=== PATIENT | male | born 1955 | race Asian ===

== ENCOUNTER 2017-07-05 09:00 | Outpatient (CLI) | payer OTHER ==
--- NOTE | 2017-07-05 11:09 | MRI ---
MRI LUMBAR SPINE WITHOUT CONTRAST: HISTORY: Back and right leg pain. COMPARISON: None. TECHNIQUE: Multiplanar, multisequence MR images were obtained of the lumbar spine without contrast. FINDINGS: The vertebral bodies demonstrate normal height without evidence of fracture. There is grade 1 ly listhesis of L4 and L5. Generalized disk desiccation is seen. No significant marrow signal abnormal ity is present. The conus medullaris terminates normally at T12. The prevertebral and paraspinal soft tissues are un remarkable. T12-L1: Unremarkable. L1-L2: A small disk osteophyte complex is seen. Mild bilateral posterior facet arthrosis. Mild ravindra tral canal stenosis. Mild bilateral neural foraminal stenosis. L2-L3: A minimal generalized concentric disk bulge is seen. Mild bilateral posterior facet arthrosi s. No central canal stenosis. Mild bilateral neural foraminal stenosis. L3-L4: A small disk osteophyte complex is seen. Moderate bilateral posterior facet arthrosis. Mode rate central canal stenosis. Moderate bilateral neural foraminal stenosis. L4-L5: A moderate disk osteophyte complex is seen. Moderate bilateral posterior facet arthrosis. M oderate to severe central canal stenosis. Mild to moderate bilateral neural foraminal stenosis. L5-S1: A small disk osteophyte complex is seen. Mild bilateral posterior facet arthrosis. No centr al canal stenosis. Moderate bilateral neural foraminal stenosis. IMPRESSION: Degenerative changes of the lumbar spine, as above. POS: [facility]
--- NOTE | 2017-07-05 14:04 | RAD ---
5 VIEWS LUMBAR SPINE INCLUDING FLEXION AND EXTENSION VIEWS: Date: 07/05/17 HISTORY: Spondylolisthesis. FINDINGS: There are five non-rib bearing lumbar-type vertebral bodies. T12 ribs are small in size. The vertebra l body heights are within normal limits. There is narrowing of the L4-5 and L5-S1 intervertebral disc spaces. There is mild Grade I anterolisthesis of L4 on L5, which is unchanged between the flexion an d extension views. No additional level of subluxation is seen and there is no evidence of a fracture. There are facet degenerative changes seen in the lower lumbar spine. IMPRESSION: Degenerative changes in the lower lumbar spine, and there is mild Grade I anterolisthesis of L4 on L5 . POS: [facility]
== END 2017-07-05 09:01 | disposition home or self-care (01) ==
LOC: MRI 09:00
PROVIDERS: ATTEND Specialist
DX: M51.16 Intervertebral disc disorders with radiculopathy, lumbar region (principal); M47.26 Other spondylosis with radiculopathy, lumbar region; M43.16 Spondylolisthesis, lumbar region
CPT/HCPCS: 72120; 72148

== ENCOUNTER 2022-12-13 06:05 | Emergency (ER) | payer OTHER, BC | END 2022-12-13 07:59 | disposition home or self-care (01) | LOC: ERS 06:05 | DX: S83.91XA Sprain of unspecified site of right knee, initial encounter (principal); I10 Essential (primary) hypertension; Z79.899 Other long term (current) drug therapy; Y93.01 Activity, walking, marching and hiking; Y92.481 Parking lot as the place of occurrence of the external cause ==